=== PATIENT | male | born 1955 | race American Indian/Alaskan Native ===

== ENCOUNTER 2021-05-17 15:17 | Inpatient (IN) | payer MEDICAID ==
[2021-05-17] MEDS ORDERED: Acetaminophen 325 MG Tab PO PRN (16:10)
[2021-05-17] MEDS ORDERED: Metoclopramide 10 MG/2 ML SDV IVPUSH PRN (16:14)
[2021-05-17] MEDS ORDERED: HYDROmorphone 1 MG/ML Syringe IVPUSH PRN (16:15)
[2021-05-17] MEDS ORDERED: Ondansetron 4 MG Tab.DIS PO PRN (16:15)
[2021-05-17] MEDS ORDERED: Ondansetron 4 MG/2 ML SDV IVPUSH PRN (16:15)
[2021-05-17] MEDS: Acetaminophen/oxyCODONE 325-5 MG Tab PO PRN (21:08)
--- NOTE | 2021-05-17 22:51 | HP ---
CHIEF COMPLAINT: Swing bed placement. HISTORY OF PRESENT ILLNESS: Mr. Egan is a 65-year-old male from the [facility], who was on treatment in [place] for chronic alcohol abuse. He suffers from a history of alcohol dependence, dementia from that, and seizure disorders. He started having abdominal pain in the facility, was seen by their physician and sent to the emergency room in [place] where he was found to have acute necrotizing pancreatitis. He had positive blood cultures I believe of gram-negative riddhi, was put on IV antibiotics. Surgical consultation was obtained and they felt he needed nonsurgical management and was a very high risk for surgical intervention and was given a poor prognosis over the course of approximately just over a week. I believe, the family decided to stop all treatments and make him comfort measures only. The patient was then transferred to [place] for ongoing comfort cares. He is a code level 3. PAST MEDICAL HISTORY: 1. History of chronic alcohol dependence. 2. Depression. 3. Type 2 diabetes. 4. Hyperlipidemia. 5. Hypertension. 6. Seizure disorder. PAST SURGICAL HISTORY: Unknown. SOCIAL HISTORY: Patient is single. Former smoker. Chronic user of alcohol. Unsure if he has any children. MEDICATIONS: Currently none, in the past he has been on multiple diabetic medications as well as donepezil and memantine for memory problems. ALLERGIES: TO PENICILLIN. FAMILY HISTORY: He has a strong family history of alcohol abuse in his father and his brother. REVIEW OF SYSTEMS: Difficult to obtain due to patient's mental status. PHYSICAL EXAMINATION: GENERAL: He is afebrile. The patient is lying supine in the hospital bed. Does not appear in any distress. HEENT: Grossly benign. No scleral icterus. Mucous membranes are moist. NECK: Supple. LUNGS: Sounds appear clear throughout. CARDIAC: Tones appear irregular but rate is controlled. ABDOMEN: Slightly distended. Bowel sounds are present, albeit slightly hypoactive. He has no significant tenderness to palpation. LOWER EXTREMITIES: Without edema. Pulses are palpable in the feet. ASSESSMENT: 1. ACUTE NECROTIZING PANCREATITIS. 2. SUSPECTED ASPIRATION PNEUMONIA, TREATED. 3. PAROXYSMAL ATRIAL FIBRILLATION. 4. HISTORY OF CHRONIC ALCOHOL ABUSE. 5. DEMENTIA RELATED TO ALCOHOLISM. 6. TYPE 2 DIABETES. PLAN: The patient was treated for his pneumonia in the hospital in [place]. They felt he needed long-term antibiotics for his necrotizing pancreatitis and family elected not to do this. He is a code level 3, comfort measures only, sent to our facility for comfort cares. Orders for comfort are put in the hospital chart and unsure completely of the patient understanding of his current status as he does ask question such as he is unaware of why he is here. We will continue to have Social Work and hopefully family involved in his ongoing cares. RICK/CARLOTA /[id number]
[2021-05-18] MEDS ORDERED: LORazepam 2 MG/ML Syringe IVPUSH PRN (07:45)
[2021-05-18] MEDS: Acetaminophen/oxyCODONE 325-5 MG Tab PO PRN ×2 (09:00→16:04)
[2021-05-19] MEDS: Melatonin 3 MG Tab PO PRN ×2 (00:36→21:39)
[2021-05-19] MEDS: Acetaminophen/oxyCODONE 325-5 MG Tab PO PRN ×2 (01:35→17:58)
[2021-05-19] MEDS: LORazepam 0.5 MG Tab PO PRN (21:38)
[2021-05-20] MEDS: Acetaminophen/oxyCODONE 325-5 MG Tab PO PRN ×2 (07:05→17:04)
[2021-05-20] MEDS: LORazepam 0.5 MG Tab PO PRN (23:01)
[2021-05-20] MEDS: Melatonin 3 MG Tab PO PRN (23:01)
[2021-05-21] MEDS: Acetaminophen/oxyCODONE 325-5 MG Tab PO PRN (18:39)
[2021-05-21] MEDS: LORazepam 0.5 MG Tab PO PRN (22:46)
[2021-05-21] MEDS: Melatonin 3 MG Tab PO PRN (22:46)
[2021-05-22 00:43] VITALS: BP 146/87; PULSE 98
[2021-05-22] MEDS: Acetaminophen/oxyCODONE 325-5 MG Tab PO PRN ×2 (10:05→20:11)
[2021-05-23] MEDS: LORazepam 0.5 MG Tab PO PRN (00:12)
[2021-05-23] MEDS: Acetaminophen/oxyCODONE 325-5 MG Tab PO PRN (14:44)
[2021-05-24] MEDS: Acetaminophen/oxyCODONE 325-5 MG Tab PO PRN (10:26)
[2021-05-24] MEDS ORDERED: Polyethylene Glycol 3350 Powder 17 GM Packet PO PRN (15:11)
[2021-05-24] MEDS: LORazepam 0.5 MG Tab PO PRN (23:24)
--- NOTE | 2021-05-26 11:13 | DISCH ---
DATE OF : 05/25/2021. ADMISSION DIAGNOSES: 1. Acute necrotizing pancreatitis. 2. Aspiration pneumonia. 3. Paroxysmal atrial fibrillation. 4. Chronic alcohol abuse. 5. Dementia related to alcoholism. 6. Type 2 diabetes. DISCHARGE DIAGNOSIS: 1. ACUTE NECROTIZING PANCREATITIS. 2. ASPIRATION PNEUMONIA. 3. PAROXYSMAL ATRIAL FIBRILLATION. 4. CHRONIC ALCOHOL ABUSE. 5. DEMENTIA RELATED TO ALCOHOLISM. 6. TYPE 2 DIABETES. HISTORY: The patient is a 65-year-old male from the [facility] who had been in [facility] for acute pancreatitis, necrotizing in nature. He had been in the [facility] for his alcoholism and started having abdominal pain. Ultimately, he had a protracted illness with some aspiration pneumonia, AFib, could not eat, and ultimately family and him decided on comfort measures only. He was sent to us from [facility] for swing bed placement and comfort measures. HOSPITAL COURSE: The patient had no significant complications while here. He could drink fluids but did not eat any solid foods. Never had any significant issues with vital sign irregularities, fevers, or drop in saturations. His pain was for the most part reasonably well controlled without the need for much IV medication. On the day of his , he was eating in his room, slumped over, and without pain or complication, and family were notified. COMPLICATIONS: During his stay were none. CONSULTATIONS: None. DISPOSITION: The patient's body taken to appropriate jail. RICK/CARLOTA /[id number]
== END 2021-05-25 15:20 | disposition expired | DRG 951 ==
LOC: UNDOADMIN 15:17 → CC.MS 15:17
PROVIDERS: ADMIT Family Medicine; ATTEND Family Medicine
DX: Z51.5 Encounter for palliative care (principal); K85.91 Acute pancreatitis with uninfected necrosis, unspecified; J69.0 Pneumonitis due to inhalation of food and vomit; F10.27 Alcohol dependence with alcohol-induced persisting dementia; I48.0 Paroxysmal atrial fibrillation; E11.9 Type 2 diabetes mellitus without complications; F32.A Depression, unspecified; E78.5 Hyperlipidemia, unspecified; I10 Essential (primary) hypertension; G40.909 Epilepsy, unspecified, not intractable, without status epilepticus; Z88.0 Allergy status to penicillin; Z87.891 Personal history of nicotine dependence; Z81.1 Family history of alcohol abuse and dependence
CPT/HCPCS: A9270-GY; J2060